=== PATIENT | male | born 1930 | race Caucasian/White ===

== ENCOUNTER 2017-01-27 19:37 | Emergency (ER) | payer OTHER ==
[~2017-01-27] VITALS: Ht 180.3 cm; Wt 59.8 kg
[~2017-01-27 19:37] MED LIST: ASPIR-LOW81 MG PO; COUMADIN5 MG PO; CREON DR 12,001 EAC1 PO; DAILY VALUE1 EACH PO; DULCOLAX10 MG PR; EXTRA STRENGTH500 M1 PO; FERROCITE324 MG PO; FERROUS FUMARAT63 MG PO; FLEET ENEMA-AD118 ML PR; FOLIC ACID1 MG PO; GABAPENTIN100 MG PO; LANTUS 3 M100 UNITS1 SC; LOVENOX60 MG/0.6 SC; METFORMIN HCL1000 MG PO; MILK OF MAGNESI10 ML GT; MOTRIN400 MG PO; POTASSIUM CHLO10 MEQ PO; SIMVASTATIN40 MG PO; VITAMIN B12 100MCG PO; XALATAN2.5 ML BOTH EYES; XARELTO20 MG PO
[2017-01-27 20:27] LABS: HEMATOCRIT 36.4 % (38.0-50.0); MCH 33.1 PG (29.0-34.0); MCHC 33.8 G/DL (30.0-36.0); MCV 97.8 FL (86-99); RBC DIS.WIDTH-CV 13.3 % (11.8-14.6); RBC DIS.WIDTH-SD 47.9 % (39-53); RED BLOOD COUNT 3.72 M/uL (4.00-5.50); WHITE BLOOD COUNT 7.3 K/uL (4.1-10.2)
[2017-01-27 20:46] LABS: CHLORIDE 105 mEq/L (99-109); SODIUM 140 mEq/L (136-147)
[2017-01-27 20:47] LABS: MAGNESIUM 1.8 mg/dL (1.3-2.7)
[2017-01-27 20:48] LABS: GLUCOSE 175 mg/dL (70-99)
[2017-01-27 20:49] LABS: ANION GAP 7 MEQ/L (2-14)
[2017-01-27 20:50] LABS: TROP-I INTERPRETATION NEGATIVE; TROPONIN-I 0.01 ng/mL (0.0-0.30)
[2017-01-27 20:52] LABS: ALKALINE PHOSPHATASE 94 IU/L (3-129); GFR ESTIMATE (CALCULATED) > 59 mL/min/
[2017-01-27 20:53] LABS: UREA NITROGEN (BUN) 13 mg/dL (9-23)
[2017-01-27 20:55] LABS: LIPASE 16 U/L (1.0-51.0)
[2017-01-27 21:20] LABS: MEAN PLAT.VOLUME 9.9 uM^3 (9.0-12.4); PLAT.SUFFICIENCY ADEQUATE; PLATELET COUNT 242 K/uL (156-360)
[2017-01-27 22:02] LABS: ADD MIUA? YES; BILIRUBIN NEGATIVE; BLOOD NEGATIVE; COLOR YELLOW ((YELLOW)); GLUCOSE (STRIP) 50; KETONES 5; LEUKOCYTES NEGATIVE; NITRITE NEGATIVE; PROTEIN (STRIP) 30; SPECIFIC GRAVITY 1.017 (1.000-1.030); UROBILINOGEN 0.2 MG/DL (0.2-1.0)
[2017-01-27 22:06] LABS: BACTERIA RARE /HPF; EPITHELIAL CELLS RARE /HPF; MUCUS TRACE /LPF; RED BLOOD CELLS 0-5 /HPF (0-5)
[2017-01-27] MEDS ORDERED: ASPIR 8181 M1 PO (22:24)
[2017-01-27] MEDS ORDERED: VITAMIN D31000 UNIT PO (22:26)
[2017-01-27] MEDS ORDERED: CREON DR 12,001 EAC1 PO (22:27)
[2017-01-27] MEDS ORDERED: LEVETIRACETAM500 MG PO (22:28)
[2017-01-27 22:45] VITALS: BP 97/54
== END 2017-01-27 22:46 | disposition home or self-care (01) ==
LOC: EME → EDBD 19:37 → EME 22:46
PROVIDERS: Physician Assistant Medical
DX: R55 Syncope and collapse (principal); F03.90 Unspecified dementia, unspecified severity, without behavioral disturbance, psychotic disturbance, mood disturbance, and anxiety; Z60.2 Problems related to living alone; Z79.82 Long term (current) use of aspirin
CPT/HCPCS: 71010; 80053; 81003; 82140; 83690; 83735; 84484; 85027; 93005; 99281; 99285; J7040